=== PATIENT | male | born 1990 | race African-American/Black ===

== ENCOUNTER 2016-12-23 10:35 | Emergency (ER) | payer SELFPAY ==
[2016-12-23 10:40] VITALS: BP 127/89; PULSE 104; TEMP 98.4; BMI 33.0
--- NOTE | 2016-12-23 11:04 | PDOC ---
History of Present Illness - General Chief Complaint: Nausea/Vomiting Stated Complaint: VOMITING Time Seen by Provider: 12/23/16 10:53 - History of Present Illness Initial Comments: 12/23/16 11:05 Chief complaint: Abdominal pain, nausea, vomiting, diarrhea History of present illness: Patient awoke this morning with nausea, vomited several times, had one episode of loose stool. Also complains of abdominal pain , constant and not crampy, entire lower abdomen. Review of systems: No fever/chills, URI symptoms, sore throat, cough, chest pain , shortness of breath, visual or focal neurologic symptoms, unsteadiness of gait , hematemesis, melena, bloody stool. No suspicious food intake yesterday, no recent ingestion of undercooked or raw meat or seafood, unwashed vegetables, sprouts, or alcohol. Past medical history: Mild asthma and seasonal ALLERGIES, maintained only on Claritin. No GI disease or surgery Social history: Works in a warehouse handling cheese, tobacco smoker, occasional social alcohol, no drugs, fully active without disability, spends moderate amount of time with his girlfriend's small children. Family history: Reviewed and noncontributory including early coronary artery disease, metabolic disease including diabetes, GI diseases including colon cancer, and cancer of other organs. Physical exam: Alert and oriented 3, well-developed well-nourished, no acute distress, cooperative Afebrile, vital signs normal except for heart rate of 104/m. This is regular No pallor or icterus. PERRLA, conjunctivae clear, ENT clear Neck supple without bruit mass or nodes Lungs clear to P&A CV S1-S2 normal without murmur rub or gallop pulses full and symmetric no JVD or edema Abdomen nondistended. Bowel sounds normal. There is mild diffuse tenderness to deep palpation, which seems to localize to McBurney's point. There is involuntary guarding, no rebound. No CVAT Neurological intact Skin clear, no rash, adequate turgor and mucous membranes Extremities no CCE Impression: Differential is between acute gastroenteritis an early appendicitis , given the localization of tenderness and guarding Plan: Urinalysis, CBC and chemistries, further imaging studies will probably be indicated. Past History - Past Medical History Allergies/Adverse Reactions: Allergies Allergy/AdvReac Type Severity Reaction Status Date / Time No Known Allergies Allergy Verified 12/23/16 10:36 Home Medications: Ambulatory Orders Loratadine [Claritin] 10 mg PO DAILY 12/23/16 Ondansetron [Zofran Odt -] 4 mg SL TID PRN #10 od.tablet 12/23/16 Asthma: Yes - Psycho/Social/Smoking Cessation Hx Anxiety: No Suicidal Ideation: No Smoking History: Current every day smoker Have you smoked in the past 12 months: Yes Number of Cigarettes Smoked Daily: 5 Information on smoking cessation initiated: Yes 'Breaking Loose' booklet given: 12/23/16 Hx Alcohol Use: Yes Drug/Substance Use Hx: No Substance Use Type: Alcohol *Physical Exam - Vital Signs Last Vital Signs Temp Pulse Resp BP Pulse Ox 98.4 F 104 H 17 127/89 100 12/23/16 10:35 12/23/16 10:35 12/23/16 10:35 12/23/16 10:35 12/23/16 10:35 ED Treatment Course - LABORATORY CBC & Chemistry Diagram: 12/23/16 11:14 12/23/16 11:14 Medical Decision Making - Medical Decision Making 12/23/16 14:06 CT results reviewed: Negative. No sign of appendicitis or other serious intra- abdominal disease Patient has had no further vomiting or diarrhea. His nausea is controlled. He has received intravenous fluids Most likely diagnosis is gastroenteritis, resolving, with instructions to remain on clear liquids for 24 hours, no solid foods or dairy products, and Zofran for nausea. If symptoms worsen, return to ER, otherwise follow up with primary physician. Patient fully ambulatory and in no pain or other distress upon discharge with his father to follow-up as directed 12/23/16 14:14 *DC/Admit/Observation/Transfer Diagnosis at time of Disposition: Gastroenteritis, acute - Discharge Dispostion Disposition: HOME Condition at time of disposition: Improved Admit: No - Prescriptions Prescriptions: Ondansetron [Zofran Odt -] 4 mg SL TID PRN #10 od.tablet PRN Reason: Nausea And/Or Vomiting - Referrals Referrals: Deshawn Ying MD [Staff Physician] - - Patient Instructions Printed Discharge Instructions: DI for Nausea -- Adult, DI for Vomiting -- Adult, DI for Diarrhea and Traveler's Diarrhea -- Adult - Post Discharge Activity Work/School Note: Back to Work
[2016-12-23 11:18] LABS: BASOPHIL 2.3 % (0-2.0); EOSINOPHIL 0.4 % (0-4.5); MCH 30.8 pg (25.7-33.7); MEAN CELL VOLUME 90.4 fl (80-96); MEAN PLT VOLUME 8.1 fl (7.5-11.1); NEUTROPHILS 71.9 % (42.8-82.8); PLATELET COUNT 280 K/MM3 (134-434); RDW 12.2 % (11.9-15.9); WHITE BLOOD COUNT 6.3 K/mm3 (4.0-10.8)
[2016-12-23 11:38] LABS: ALBUMIN 4.5 g/dl (3.5-5.0); ALK PHOS 71 U/L (32-92); ANION GAP 8 (8-16); BILIRUBIN,TOTAL 0.6 mg/dl (0.2-1.0); CALCIUM 9.6 mg/dl (8.4-10.2); CO2 25 mmol/L (22-28); GLUCOSE,RANDOM 91 mg/dl (74-106); SGOT/AST 38 U/L (10-42); SGPT/ALT 46 U/L (10-40); TOT PROT 7.7 g/dl (6.4-8.3)
[2016-12-23 13:11] LABS: PH,URINE 6.5 (4.5-8); URINE APPEARANCE Clear; URINE BILIRUBIN 1+ (NEGATIVE); URINE BLOOD Negative (NEGATIVE); URINE GLUCOSE (UA) Negative (NEGATIVE); URINE KETONE 1+ (NEGATIVE); URINE LEUK ESTERASE Negative (NEGATIVE); URINE NITRITE Negative (NEGATIVE); URINE PROTEIN Trace (NEGATIVE); URINE UROBILINOGEN 0.2 E.U/dl (0.2-1.0)
[2016-12-23] MEDS ORDERED: ONDANSETRON 4 MG/2 ML VIAL IVPB ONE (13:26)
[2016-12-23] MEDS ORDERED: SODIUM CHLORIDE 1,000 ML IV STA (13:26)
[2016-12-23] MEDS ORDERED: ONDANSETRON 4 MG/2 ML VIAL ONE (13:29)
[2016-12-23 14:34] LABS: URINE COLOR YELLOW
== END 2016-12-23 14:29 | disposition home or self-care (01) ==
LOC: FER 10:35
PROC: 3E0337Z Introduction of Electrolytic and Water Balance Substance into Peripheral Vein, Percutaneous Approach (ICD-10-PCS; principal; 2016-12-23)
DX: K52.9 Noninfective gastroenteritis and colitis, unspecified (principal); F17.210 Nicotine dependence, cigarettes, uncomplicated
CPT/HCPCS: 36415; 74177-TC; 80053; 81003; 85025; 99283-25

== ENCOUNTER 2018-01-05 17:41 | Emergency (ER) | payer BC, OTHER ==
[2018-01-05 18:03] VITALS: BP 125/86; PULSE 68; TEMP 99; BMI 33.5
[2018-01-05] MEDS ORDERED: MAG HYDROX/AL HYDROX/SIMETH -MYLANTA- ORAL SUSPENSION PO ONE (18:05)
[2018-01-05] MEDS ORDERED: ONDANSETRON *ODT* 4 MG TABLET SL ONE (18:05)
--- NOTE | 2018-01-05 18:06 | PDOC ---
History of Present Illness - General History Source: Patient, Friend Exam Limitations: No Limitations - History of Present Illness Initial Comments: 01/05/18 18:09 The patient is a 27 year old male with a past medical history of asthma and seasonal allergies who presents to the emergency department with chest pain, nausea, vomiting, and epigastric pain for 5 days. The patient presents with a friend who reports similar symptoms. He reports that he ate romansh food Wednesday and that his symptoms began on Wednesday night. He endorses 1 episode of vomiting today. He describes his chest pain as left sided tightness exacerbated when taking a deep inhalation. He denies diarrhea. <Augustin Lopez - Last Filed: 01/05/18 18:11> <Ge Concepcion - Last Filed: 01/06/18 09:19> - General Chief Complaint: Nausea Stated Complaint: NAUSEA Time Seen by Provider: 01/05/18 17:59 Past History <Augustin Lopez - Last Filed: 01/05/18 18:11> - Past Medical History Asthma: Yes COPD: No - Suicide/Smoking/Psychosocial Hx Smoking History: Current every day smoker Have you smoked in the past 12 months: Yes Number of Cigarettes Smoked Daily: 7 Information on smoking cessation initiated: Yes 'Breaking Loose' booklet given: 01/05/18 Hx Alcohol Use: Yes Drug/Substance Use Hx: No Substance Use Type: Alcohol <Ge Concepcion - Last Filed: 01/06/18 09:19> - Past Medical History Allergies/Adverse Reactions: Allergies Allergy/AdvReac Type Severity Reaction Status Date / Time No Known Allergies Allergy Verified 01/05/18 17:42 Home Medications: Ambulatory Orders NK [No Known Home Medication] 01/05/18 Review of Systems - Review of Systems Able to Perform ROS?: Yes Comments:: 01/05/18 18:09 CONSTITUTIONAL: Absent: fever, no chills, no fatigue EYES: Absent: visual changes ENT: Absent: ear pain, no sore throat CARDIOVASCULAR: (+) Chest pain Absent: no palpitations RESPIRATORY: Absent: cough, no SOB GI: (+) Epigastric pain, nausea, vomiting Absent: no constipation, no diarrhea GENITOURINARY: Absent: dysuria, no frequency, no hematuria MUSCULOSKELETAL: Absent: back pain, no arthralgia, no myalgia SKIN: Absent: rash <Augustin Lopez - Last Filed: 01/05/18 18:11> *Physical Exam - Vital Signs Last Vital Signs Temp Pulse Resp BP Pulse Ox 99 F 68 20 125/86 100 01/05/18 17:42 01/05/18 17:42 01/05/18 17:42 01/05/18 17:42 01/05/18 17:42 - Physical Exam Comments: 01/05/18 18:11 GENERAL: Well-appearing, well-nourished. No apparent distress. HEENT: Normocephalic, atraumatic. PERRL, EOM intact. CARDIOVASCULAR: Normal S1, S2. Regular rate and rhythm. PULMONARY: Clear to auscultation bilaterally. ABDOMEN: Soft, non-distended, non-tender. EXTREMITIES: Normal ROM in all four extremities. No gross deformities. SKIN: Warm, dry. No rash NEUROLOGICAL: No focal neurological deficits. <Augustin Lopez - Last Filed: 01/05/18 18:11> - Vital Signs Last Vital Signs Temp Pulse Resp BP Pulse Ox 99 F 68 20 125/86 100 01/05/18 17:42 01/05/18 17:42 01/05/18 17:42 01/05/18 17:42 01/05/18 17:42 <Ge Concepcion - Last Filed: 01/06/18 09:19> Medical Decision Making - Medical Decision Making Patient with very mild symptoms, improving now. Residual mild nausea, no recent vomiting or diarrhea. Physical exam reveals normal vital signs and normal abdominal exam. Antiemetic and oral rehydration. <Ge Concepcion - Last Filed: 01/06/18 09:19> *DC/Admit/Observation/Transfer - Attestations Scribe Attestion: 01/05/18 18:10 Documentation prepared by Augustin Lopez, acting as director medical economics for Ge Concepcion MD. <Augustin Lopez - Last Filed: 01/05/18 18:11> - Discharge Dispostion Decision to Admit order: No <Ge Concepcion - Last Filed: 01/06/18 09:19> Diagnosis at time of Disposition: Gastroenteritis, acute - Discharge Dispostion Disposition: HOME Condition at time of disposition: Improved - Referrals Referrals: Deshawn Ying MD [Staff Physician] - 2 Days - Patient Instructions Printed Discharge Instructions: DI for Viral Gastroenteritis -- Adult - Post Discharge Activity Forms/Work/School Notes: Back to Work
[2018-01-05] MEDS ORDERED: ONDANSETRON *ODT* 4 MG TABLET ONE (18:20)
[2018-01-05] MEDS ORDERED: MAG HYDROX/AL HYDROX/SIMETH 30 ML UNIT-DOSE CUP ONE (18:20)
== END 2018-01-05 19:34 | disposition home or self-care (01) ==
LOC: FER 17:41
DX: F17.210 Nicotine dependence, cigarettes, uncomplicated (principal); J45.909 Unspecified asthma, uncomplicated
CPT/HCPCS: 99282-25; Q0162